=== PATIENT | female | born 1965 | race Caucasian/White ===

== ENCOUNTER → 2016-08-06 | Outpatient (CLI) | payer MEDICAID | END | disposition home or self-care (01) | LOC: MAMMO 10:09 | DX: N63 Unspecified lump in breast (principal) | CPT/HCPCS: 76641; G0204 ==

== ENCOUNTER → 2016-08-30 | Day surgery (SDC) | payer MEDICAID ==
[~2016-08-30] MED LIST: LIDOCAINE HCL 2%/EPINEPHRINE/PF 10 ML VIAL ONE; SODIUM BICARBONATE 4% (2.4MEQ) 5ML VIAL IV ONE
== END | disposition home or self-care (01) ==
LOC: RAD 10:06
DX: N60.11 Diffuse cystic mastopathy of right breast (principal)
CPT/HCPCS: 19083; 88305; A4648; J3490